=== PATIENT | male | born 1985 | race Caucasian/White ===

== ENCOUNTER 2016-07-07 04:30 | Emergency (ER) ==
[2016-07-07] MEDS ORDERED: ZOFRAN IV ONE (04:41)
[2016-07-07] MEDS ORDERED: DILAUDID IV ONE (04:41)
[2016-07-07 04:55] LABS: BASO% 0.1 % (0.0-0.8); HEMATOCRIT 46.4 % (42.0-52.0); HEMOGLOBIN 16.8 g/dL (14.0-18.0); IMM GRAN# 0.03 X1000 (0.0-0.04); IMM GRAN% 0.2 % (0.0-0.5); LYMPH# 0.88 X1000 (1.2-3.4); LYMPH% 6.8 % (20.5-51.1); MANUAL DIFF NEEDED? NO; MCH 34.5 PG (27-31); MCHC 36.2 g/dL (33-37); MCV 95.3 FL (81-99); MONO# 0.47 X1000 (0.11-0.59); MONO% 3.6 % (1.7-9.3); MPV 10.9 FL (7.4-10.4); NEUT% 89.3 % (42.2-75.2); PLT 260 X1000 (130-400); RBC 4.87 XMIL (4.7-6.1)
[2016-07-07 05:19] LABS: AGAP 13; ALBUMIN 4.7 g/dL (3.5-5.0); ALKALINE PHOSPHATASE 85 U/L (32-122); BUN 12 mg/dL (8-22); CALCIUM 10.3 mg/dL (8.8-10.2); CHLORIDE 99 mmol/L (98-107); COSMO 285; GOT 20 U/L (10-34); GPT 38 U/L (10-44); POTASSIUM 4.4 mmol/L (3.5-5.1); SODIUM 142 mmol/L (136-145); TCO2 30 mmol/L (25-35); TOTAL BILIRUBIN 0.38 mg/dL (0.20-1.00); TOTAL PROTEIN 7.7 g/dL (6.3-8.3)
[2016-07-07] MEDS ORDERED: TORADOL IV ONE (05:48)
[2016-07-07] MEDS ORDERED: FLOMAX PO ONE (05:49)
[2016-07-07] MEDS ORDERED: NS 1,000 ML IV ONE (05:50)
--- NOTE | 2016-07-07 06:05 | PROVIDER DOCUMENTATION ---
HPI-Male Problem - General Chief Complaint: Flank Pain Stated Complaint: BACK PAIN/FEELS LIKE KIDNEY STONE Time Seen by Provider: 07/07/16 04:40 Source: patient Allergies/Adverse Reactions: Patient Allergies Allergy/AdvReac Type Severity Reaction Status Date / Time No Known Allergies Allergy Verified 07/07/16 04:34 Home Medications: Home Medication List Medication Instructions Recorded Confirmed Last Taken Type Oxycodone HCl/Acetaminophen 1 each PO Q4-8H PRN PRN #14 tablet 07/07/16 Unknown Rx [Percocet 7.5-325 mg Tablet] - History of Present Illness-Male Nature of Presenting Problem: Pt has history of kidney stones . He awoke around 1 am with mainly testicular pain followed by left flank pain idenical to previous episodes of pain nephrolithiasis. He denies vomiting. Location of Complaint: reports: left flank, groin Radiation: reports: urethral Quality of Pain: reports: sharp Severity in ED: reports: moderate Onset/Duration: reports: just prior to arrival Context/Activities at Onset: reports: sleep Urinary Symptoms: reports: no symptoms Associated Symptoms: reports: none Similar Symptoms Previously?: Yes Recently seen or treated by another doctor?: No Review of Systems - Adult - REVIEW OF SYSTEMS - ADULT Constitutional: reports: no symptoms reported Eyes: reports: no symptoms reported Ears, Nose, Mouth & Throat: reports: no symptoms reported Cardiovascular: reports: no symptoms reported Respiratory: reports: no symptoms reported Gastrointestinal: reports: no symptoms reported Genitourinary: reports: no symptoms reported Musculoskeletal: reports: no symptoms reported Integumentary: reports: no symptoms reported Neurological: reports: no symptoms reported Psychiatric: reports: no symptoms reported Endocrine: reports: no symptoms reported Hematologic/Lymphatic: reports: no symptoms reported Allergic/Immunologic: reports: no symptoms reported All Other Systems: Reviewed and Negative Past History - Adult - PAST MEDICAL HISTORY-ADULT Review of Records: reports: Old Records Reviewed, Nursing Assessment Review Major Childhood Illnesses: reports: denies history Physical Exam-General - PHYSICAL EXAM-ADULT Initial Vital Signs Reviewed: Yes - CONSTITUTIONAL General Appearance: appears well, mild distress - EYES Eyes: PERRL/EOMI - HEAD, EARS, NOSE, MOUTH & THROAT HENMT: normocephalic/atraumatic, moist mucous membranes, normal ENT inspection - NECK Neck: non-tender, full range of motion - RESPIRATORY Respiratory: chest non-tender, lungs clear - CARDIOVASCULAR Cardiovascular: normal peripheral pulses, regular rate, rhythm - GASTROINTESTINAL (ABDOMEN) Abdominal Exam: normal bowel sounds, non tender - GENITOURINARY Rectal Exam: deferred - MUSCULOSKELETAL Back Exam: CVA tenderness Progress - PLAN OF CARE/RESULTS Progress/Plan/Lab Results: Laboratory Tests 07/07/16 07/07/16 04:41 04:41 WBC 12.97 H RBC 4.87 Hgb 16.8 Hct 46.4 MCV 95.3 MCH 34.5 H MCHC 36.2 RDW Std Deviation 11.6 Plt Count 260 MPV 10.9 H Immature Gran % (Auto) 0.2 Neut % (Auto) 89.3 H Lymph % (Auto) 6.8 L Payette % (Auto) 3.6 Eos % (Auto) 0.0 Baso % (Auto) 0.1 Immature Gran # (Auto) 0.03 Neut # (Auto) 11.58 H Lymph # (Auto) 0.88 L Payette # (Auto) 0.47 Eos # (Auto) 0.00 Baso # (Auto) 0.01 Sodium 142 Potassium 4.4 Chloride 99 Carbon Dioxide 30 Anion Gap 13 BUN 12 Creatinine 1.0 Estimated GFR/1.73 m2 > 60 BUN/Creatinine Ratio 12 Glucose 144 H Calculated Osmolality 285 Calcium 10.3 H Total Bilirubin 0.38 AST 20 ALT 38 Alkaline Phosphatase 85 Total Protein 7.7 Albumin 4.7 Globulin 3.0 Albumin/Globulin Ratio 1.6 Orders Category Date Time Status RENAL STONE SEARCH [CT] Stat Exams 07/07/16 04:42 Taken CBC WITH ELECTRONIC DIFF [HEME] Stat Lab 07/07/16 04:41 Completed COMPREHENSIVE METABOLIC PANEL [CHEM] Stat Lab 07/07/16 04:41 Completed UA NIMS W/REFLEX CULT [URINALYSIS] Stat Lab 07/07/16 05:58 Ordered 0.9% Sodium Chloride Inj [Ns] 1,000 ml Med 07/07/16 05:50 Active IV 999 mls/hr Hydromorphone [Dilaudid] Med 07/07/16 04:41 Discontinued 1 mg IV NOW ONE Ketorolac [Toradol] Med 07/07/16 05:48 Discontinued 30 mg IV NOW ONE Ondansetron [Zofran] Med 07/07/16 04:41 Discontinued 4 mg IV NOW ONE Tamsulosin [Flomax] Med 07/07/16 05:49 Discontinued 0.4 mg PO NOW ONE Vital Signs Temp Pulse Resp BP Pulse Ox 07/07/16 04:32 97.9 F 85 16 157/93 100 No Known Allergies Allergy (Verified 07/07/16 04:34) No Home Medications 07/07/16 I&O 07/05/16 07/06/16 07/07/16 06:59 06:59 06:59 Output Total 100 Balance -100 Laboratory 07/07/16 07/07/16 04:41 04:41 WBC 12.97 H RBC 4.87 Hgb 16.8 Hct 46.4 MCV 95.3 MCH 34.5 H MCHC 36.2 RDW Std Deviation 11.6 Plt Count 260 MPV 10.9 H Immature Gran % (Auto) 0.2 Neut % (Auto) 89.3 H Lymph % (Auto) 6.8 L Payette % (Auto) 3.6 Eos % (Auto) 0.0 Baso % (Auto) 0.1 Immature Gran # (Auto) 0.03 Neut # (Auto) 11.58 H Lymph # (Auto) 0.88 L Payette # (Auto) 0.47 Eos # (Auto) 0.00 Baso # (Auto) 0.01 Sodium 142 Potassium 4.4 Chloride 99 Carbon Dioxide 30 Anion Gap 13 BUN 12 Creatinine 1.0 Estimated GFR/1.73 m2 > 60 BUN/Creatinine Ratio 12 Glucose 144 H Calculated Osmolality 285 Calcium 10.3 H Total Bilirubin 0.38 AST 20 ALT 38 Alkaline Phosphatase 85 Total Protein 7.7 Albumin 4.7 Globulin 3.0 Albumin/Globulin Ratio 1.6 Laboratory Tests 07/07/16 07/07/16 07/07/16 04:41 04:41 04:45 WBC 12.97 H RBC 4.87 Hgb 16.8 Hct 46.4 MCV 95.3 MCH 34.5 H MCHC 36.2 RDW Std Deviation 11.6 Plt Count 260 MPV 10.9 H Immature Gran % (Auto) 0.2 Neut % (Auto) 89.3 H Lymph % (Auto) 6.8 L Payette % (Auto) 3.6 Eos % (Auto) 0.0 Baso % (Auto) 0.1 Immature Gran # (Auto) 0.03 Neut # (Auto) 11.58 H Lymph # (Auto) 0.88 L Payette # (Auto) 0.47 Eos # (Auto) 0.00 Baso # (Auto) 0.01 Sodium 142 Potassium 4.4 Chloride 99 Carbon Dioxide 30 Anion Gap 13 BUN 12 Creatinine 1.0 Estimated GFR/1.73 m2 > 60 BUN/Creatinine Ratio 12 Glucose 144 H Calculated Osmolality 285 Calcium 10.3 H Total Bilirubin 0.38 AST 20 ALT 38 Alkaline Phosphatase 85 Total Protein 7.7 Albumin 4.7 Globulin 3.0 Albumin/Globulin Ratio 1.6 Urine Source CLEAN CATCH Urine Color YELLOW Urine Turbidity CLEAR Urine pH 6.5 Ur Specific Lewellen 1.025 Urine Protein TRACE A Ur Glucose (Stick) 70 A Ur Ketones (Stick) NEGATIVE Urine Blood SMALL A Urine Nitrite NEGATIVE Urine Bilirubin NEGATIVE Urobilinogen Dipstick NORMAL Urine Leukocytes NEGATIVE Urine WBC (Auto) <10 Urine RBC (Auto) <10 U Epithel Cells (Auto) <10 Urine Bacteria (Auto) NEGATIVE - CT/MRI 1 CT Study: Renal Stone (5 mm stone in each kidney but one in ureter) Departure - Departure Time of Disposition Order: 06:30 DIAGNOSIS: Nephrolithiasis Disposition: HOME 01 Certified Medical Emergency: Emergent Condition: Good Additional Instructions: Follow up with urology Prescriptions: Oxycodone HCl/Acetaminophen [Percocet 7.5-325 mg Tablet] 1 each PO Q4-8H PRN PRN #14 tablet PRN Reason: Pain
[2016-07-07 06:10] LABS: URINE CULTURE NEEDED? NO; URINE MICRO REVIEW NEEDED? NO; URINE SOURCE CLEAN CATCH
[2016-07-07 06:16] LABS: BILIRUBIN URINE NEGATIVE (NEGATIVE); BLOOD URINE SMALL (NEGATIVE); COLOR YELLOW; GLUCOSE URINE 70 mg/dL (NEGATIVE); LEUKOCYTES URINE NEGATIVE (NEGATIVE); NITRITE URINE NEGATIVE (NEGATIVE); PH URINE 6.5; PROTEIN URINE TRACE mg/dL (NEGATIVE); SP GRAVITY URINE 1.025; TURBIDITY URINE CLEAR (CLEAR); UROBILINOGEN URINE NORMAL (NORMAL)
[2016-07-07 06:18] LABS: UR EPITHELIAL CELLS <10 /HPF (<10); URINE BACTERIA NEGATIVE /HPF; URINE RBC <10 /HPF (<10); URINE WBC <10 /HPF (<10)
--- NOTE | 2016-07-07 06:19 | Diag Imaging Result Document ---
PROCEDURE NAME: RENAL STONE SEARCH - 07/07/2016 CT ABDOMEN AND PELVIS WITHOUT ORAL OR INTRAVENOUS CONTRAST: FINDINGS: Normal spleen and adrenal glands. No inflammation about the pancreas or gallbladder. No focal hepatic abnormality identified on this noncontrasted exam although the liver is prominent The upper liver is not included on this renal stone search. There are bilateral nonobstructing renal stones. No perinephric inflammation. No hydronephrosis. No ureteral stones. Normal aorta. No bowel obstruction. There is stool throughout the colon. Normal appendix. No abscess. The urinary bladder is moderately distended and appears normal. IMPRESSION: 1. Bilateral nonobstructing renal stones. No hydronephrosis. 2. Constipation. 3. Prominent liver. A preliminary report was given at 5:20 a.m.
[2016-07-07 06:41] VITALS: BP 156/90
== END 2016-07-07 06:41 | disposition home or self-care (01) ==
LOC: ED 04:30
DX: N20.0 Calculus of kidney (principal); K59.00 Constipation, unspecified; R10.9 Unspecified abdominal pain; M54.9 Dorsalgia, unspecified; N50.819 Testicular pain, unspecified; Z87.442 Personal history of urinary calculi
CPT/HCPCS: 74176; 80053; 81001; 85025; J1170; J1885; J2405; J7030

== ENCOUNTER 2018-08-04 01:10 | Inpatient (IN) ==
[2018-08-04] MEDS ORDERED: ZOSYN 3.375 GM in NS 50 ML IV ONE (01:34)
[2018-08-04] MEDS ORDERED: VANCOMYCIN 1 GM/NS 1 GM/250 ML IVPB IV ONE ×2 (01:34→11:00)
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
[2018-08-04 03:54] LABS: BASO# 0.02 X1000 (0.0-0.2); BASO% 0.2 % (0.0-0.8); EOS# 0.07 X1000 (0.0-0.7); EOS% 0.6 % (0.0-10.0); HEMATOCRIT 37.3 % (42.0-52.0); HEMOGLOBIN 12.9 g/dL (14.0-18.0); IMM GRAN# 0.04 X1000 (0.0-0.04); IMM GRAN% 0.3 % (0.0-0.5); LYMPH# 2.37 X1000 (1.2-3.4); LYMPH% 18.6 % (20.5-51.1); MCH 32.7 PG (27-31); MCHC 34.6 g/dL (33-37); MCV 94.4 FL (81-99); MONO% 12.6 % (1.7-9.3); MPV 11.5 FL (7.4-10.4); NEUT# 8.61 X1000 (1.4-6.5); NEUT% 67.7 % (42.2-75.2); PLT 197 X1000 (130-400); RBC 3.95 XMIL (4.7-6.1); RDW 11.4 % (11.5-14.5); WBC 12.71 X1000 (4.8-10.8)
[2018-08-04 04:06] LABS: AGAP 12; ALB/GLOB RATIO 1.2; ALBUMIN 3.7 g/dL (3.5-5.0); ALKALINE PHOSPHATASE 84 U/L (32-122); BUN 10 mg/dL (8-22); CALCIUM 8.8 mg/dL (8.8-10.2); CHLORIDE 100 mmol/L (98-107); COSMO 280; CREATININE 1.1 mg/dL (0.7-1.2); ESTIMATED GFR > 60; GLUCOSE 130 mg/dL (70-104); GOT 18 U/L (10-34); GPT 26 U/L (10-44); POTASSIUM 3.5 mmol/L (3.5-5.1); SODIUM 140 mmol/L (136-145); TCO2 28 mmol/L (25-35); TOTAL BILIRUBIN 0.31 mg/dL (0.20-1.00); TOTAL PROTEIN 6.9 g/dL (6.3-8.3)
--- NOTE | 2018-08-04 07:57 | Diag Imaging Result Doc PS360 ---
EXAM: ELBOW COMPLETE LEFT 08/04/2018 HISTORY: infection TECHNIQUE: Left elbow three views COMMENT: There is soft tissue swelling on both sides of the elbow in the subcutaneous fat. There is no evidence of fracture, dislocation, periosteal reaction or erosion. IMPRESSION: Soft tissue swelling. Electronically signed by Joesph Valdez 08/04/2018 7:54 AM
[2018-08-04] MEDS ORDERED: ZOFRAN IV PRN (09:29)
[2018-08-04] MEDS ORDERED: LOVENOX SUBQ SCH (09:30)
[2018-08-04] MEDS ORDERED: M.V.I.-12 10 ML, FOLIC ACID 1 MG, MAGNESIUM SULFATE 1 GM, THIAMINE 100 MG in NS 1,000 ML IV ONE ×2 (09:37→10:15)
[2018-08-04] MEDS ORDERED: VANCOMYCIN IV PER PHARMACY MISC SCH (09:45)
[2018-08-04] MEDS ORDERED: TYLENOL PO PRN (10:03)
[2018-08-04] MEDS ORDERED: ZOSYN 3.375 GM in NS 50 ML IV SCH (10:15)
[2018-08-04 11:14] LABS: URINE SOURCE CLEAN CATCH
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
[2018-08-04 11:17] LABS: BILIRUBIN URINE NEGATIVE (NEGATIVE); BLOOD URINE SMALL (NEGATIVE); COLOR YELLOW; GLUCOSE URINE NEGATIVE (NEGATIVE); KETONE URINE NEGATIVE (NEGATIVE); LEUKOCYTES URINE NEGATIVE (NEGATIVE); NITRITE URINE NEGATIVE (NEGATIVE); PH URINE 6.5; PROTEIN URINE TRACE mg/dL (NEGATIVE); SP GRAVITY URINE 1.027; TURBIDITY URINE CLEAR (CLEAR); UROBILINOGEN URINE 2 mg/dL (NORMAL)
[2018-08-04 11:18] LABS: UR EPITHELIAL CELLS <10 /HPF (<10); URINE BACTERIA NEGATIVE /HPF; URINE WBC <10 /HPF (<10)
[2018-08-04] MEDS: MORPHINE IV PRN ×2 (11:22→20:19)
[2018-08-04 11:30] LABS: URINE CASTS NONE SEEN; URINE CRYSTALS CA OXALATE PRESENT; URINE SMALL ROUND CELLS NONE SEEN; URINE YEAST NONE SEEN
[2018-08-04] MEDS: NS 1,000 ML IV SCH (11:32)
[2018-08-04 11:56] LABS: UR AMPHETAMINES QUAL PRESUMPTIVE POSITIVE (NONE DETECT); UR BARBITUATES QUAL NONE DETECTED (NONE DETECT); UR BENZODIAZEPIN QUAL NONE DETECTED (NONE DETECT); UR CANNABINOIDS QUAL NONE DETECTED (NONE DETECT); UR COCAINE QUAL NONE DETECTED (NONE DETECT); UR METHADONE QUAL NONE DETECTED (NONE DETECT); UR OPIATES QUAL PRESUMPTIVE POSITIVE (NONE DETECT); UR OXYCODONE QUAL NONE DETECTED (NONE DETECT); UR PCP QUAL NONE DETECTED (NONE DETECT)
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
--- NOTE | 2018-08-04 13:29 | Diag Imaging Result Doc PS360 ---
EXAM: CHEST-1 VIEW 08/04/2018 HISTORY: drug addict with dyspnea TECHNIQUE: AP portable at 1313 COMMENT: There is no evidence of acute cardiac or pulmonary disease. There are no previous studies. IMPRESSION: No acute disease. Electronically signed by Joesph Valdez 08/04/2018 1:27 PM
--- NOTE | 2018-08-04 14:34 | HISTORY AND PHYSICAL ---
ADDENDUM: Nurse and I were in the room with the patient. The patient's mother presented to the hospital, who was at the bedside with the patient and began asking questions about events leading up to his emergency room arrival. The patient kept telling the mother "I don't know what happened, so I did not give any further details." When I left the room, the mother followed me out of the room and was asking about any IV drug use. I informed the mother that he was an adult, and that he did want anything told to anyone. Therefore, I would not discuss any further details, to which the mother was not happy, but she understood. The patient's nurse, Ana Laura, and I then went in the room and closed the door and asked the patient. He stated he did not want us to give any details to anyone about any events leading up to his ER visit; that he was okay with us talking about his ER care, and I did inform the patient that we would talk to the mother in the room with him, to which he was very agreeable. Dictated by KANWAL Santoyo for Richard Thompson MD This chart was documented by, KANWAL Santoyo and accurately reflects the services performed, treatment plan and medical decisions as attested by the providers signature Richard Thompson MD. cc: KANWAL Santoyo MD
[2018-08-04] MEDS ORDERED: DIPRIVAN 1% ONE ×2 (17:40→17:57)
[2018-08-04] MEDS ORDERED: XYLOCAINE-MPF 2% ONE (17:41)
[2018-08-04] MEDS ORDERED: QUELICIN (DOSE) ONE (17:42)
[2018-08-04] MEDS ORDERED: NORCURON ONE (17:43)
[2018-08-04] MEDS ORDERED: SODIUM CHLORIDE 0.9% 0 ML ONE (17:43)
--- NOTE | 2018-08-04 17:52 | Diag Imaging Result Doc PS360 ---
MRI UPPER EXT W/WO CON-LEFT - 08/04/2018 INDICATION: ? compartment syndrome, abcess TECHNIQUE: MRI left elbow without and with intravenous contrast COMPARISON: None FINDINGS: There is significant surrounding subcutaneous edema. At the volar surface of the elbow, there is an extremely superficial irregularly enhancing subcutaneous fluid collection consistent with an abscess. This extends all the way to the skin surface. This measures 6.9 x 3.8 x 3.3 cm. This overlies the distal biceps tendon. No deeper compartment abnormality. IMPRESSION: Superficial subcutaneous abscess at the volar surface of the elbow. Electronically signed by Jason Darling 08/04/2018 5:50 PM
[2018-08-04] MEDS ORDERED: DILAUDID ONE (19:08)
[2018-08-04] MEDS ORDERED: LR 500 ML ONE (19:33)
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
[2018-08-04] MEDS: OXY IR PO PRN ×2 (21:45→21:49)
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
[2018-08-04 23:32] LABS: HIV ANTIBODY SCREEN SEE COMMENTS
[2018-08-05] MEDS: NS 1,000 ML IV SCH (00:30)
[2018-08-05] MEDS: VANCOMYCIN 1,500 MG in NS 250 ML IV SCH ×2 (04:33→23:00)
[2018-08-05] MEDS: MORPHINE IV PRN ×5 (04:33→23:03)
[2018-08-05] MEDS: PRILOSEC PO SCH (06:13)
[2018-08-05 07:49] LABS: HEMATOCRIT 42.1 % (42.0-52.0); HEMOGLOBIN 14.5 g/dL (14.0-18.0); MCH 33.1 PG (27-31); MCHC 34.4 g/dL (33-37); MCV 96.1 FL (81-99); MPV 11.4 FL (7.4-10.4); RBC 4.38 XMIL (4.7-6.1); RDW 11.7 % (11.5-14.5); WBC 14.59 X1000 (4.8-10.8)
--- NOTE | 2018-08-05 08:04 | PROGRESS NOTE ---
DATE: 08/05/2018 SUBJECTIVE: Mr. Rojas is lying in bed this morning. He has complained of pain in the arm. OBJECTIVE: Left upper extremity exam: His dressing is clean, dry, and intact. All his hand intrinsics are intact. He has good sensation to light touch to the fingers, and he has good 2+ radial pulse. ASSESSMENT: Status post left antecubital fossa and arm irrigation, debridement for abscess. PLAN: I discussed with Mr. Rojas about the iodoform packing in there; we will probably take that out tomorrow sometime and do a dressing change. I did discuss with him it is going to take awhile to get over this and to heal his arm. I am okay with him moving his arm a little bit and moving all his fingers. We will continue to follow. cc: Meliton Mckeon MD
[2018-08-05 09:59] LABS: AGAP 16; ALBUMIN 3.5 g/dL (3.5-5.0); ALKALINE PHOSPHATASE 84 U/L (32-122); BUN 5 mg/dL (8-22); CHLORIDE 99 mmol/L (98-107); COSMO 273; CREATININE 0.7 mg/dL (0.7-1.2); ESTIMATED GFR > 60; GLUCOSE 103 mg/dL (70-104); GOT 18 U/L (10-34); GPT 26 U/L (10-44); POTASSIUM 3.5 mmol/L (3.5-5.1); SODIUM 138 mmol/L (136-145); TCO2 23 mmol/L (25-35); TOTAL BILIRUBIN 0.39 mg/dL (0.20-1.00)
[2018-08-05 13:04] LABS: HEPATITIS PROFILE ACUTE SEE COMMENTS
--- NOTE | 2018-08-05 13:38 | PROGRESS NOTE ---
DATE: 08/05/2018 SUBJECTIVE: The patient complains of pain in his left arm. OBJECTIVE: Vital Signs: Temperature 97.9 degrees, blood pressure 135/82, heart rate 76, respirations 18, and O2 saturation 99% on room air. General: This is a young male lying in bed in no acute distress. Heart: S1, S2 normal. Regular rate and rhythm. Lungs: Clear to auscultation bilaterally. Abdomen: Positive bowel sounds. Soft, nontender, and nondistended. Extremities: Left arm is wrapped in a clean dry dressing. Neurologic: The patient is alert and oriented x3. LABORATORY: White blood cell count 14, hemoglobin 14, hematocrit 42, and platelets 228,000. Sodium 138, potassium 3.5, chloride 99, CO2 23, BUN 5, creatinine 0.7 and glucose 103. ASSESSMENT AND PLAN: 1. Status post irrigation and debridement of a left arm abscess. Continue with IV antibiotic therapy as directed by Dr. Chatman. The wound cultures are currently pending. Further management as per the orthopedic surgeon. 2. IV drug abuse. Aware. 3. Deep vein thrombosis prophylaxis. Continue with SCD's. cc: Rhonda Michelle MD
--- NOTE | 2018-08-05 16:55 | INFECTIOUS DISEASE PROGRESS NO ---
DATE: 08/05/2018 PRESENT ILLNESS: Mr. Rojas is being treated for cellulitis and abscess of the left elbow. He is status post irrigation and debridement of that abscess. There is also a gram-positive coccus growing in 1 one out of 2 of his blood cultures. This may possibly be a contaminant or it may be bacteremia. MEDICATIONS: Today is day 1 of vancomycin IV per pharmacy dosing. PHYSICAL EXAM: Vital Signs: Temperature is 97.4 degrees, pulse rate 78, respiratory rate 18, blood pressure 114/92, O2 saturation 100% on room air. General: This is a acutely ill appearing young man. He is lying in bed lethargic but arousable in no acute distress. HEENT: Atraumatic, normocephalic. Oral mucous membranes are pink and moist. Conjunctivae are pink. Neck: Supple. Trachea is midline. Cardiovascular: Heart rate is regular. Respiratory: Lung sounds are clear to auscultation. Abdomen: Soft, flat and nontender. Bowel sounds are active. Integumentary: His left upper arm has a bulky Chandan wrap with some swelling noted above the Chandan wrap area. He has a good radial pulse in that arm. Neurologic: He is drowsy and lethargic but arousable and appropriate, able to move all his extremities in the bed without difficulty. LABORATORY AND X-RAY: No imaging report today, but yesterday his chest x-ray showed no acute disease. ASSESSMENT AND PLAN: Mr. Rojas has had irrigation and drainage of an abscess with cellulitis of the left upper extremity. He is receiving vancomycin which we will continue. There is a possibility of a bacteremia versus contaminant, with gram-positive cocci growing in 1 out of 2 of the blood cultures. His left upper extremity cultures are pending with preliminary report of no growth. For now we will continue vancomycin as ordered and await final cultures. These plans have been discussed with and recommended by Dr. Chatman. COMORBIDITIES: Include tobacco, alcohol and drug abuse. Dictated by KANWAL Lim for Jordan Chatman MD This chart was documented by, KANWAL Lim and accurately reflects the services performed, treatment plan and medical decisions as attested by the providers signature Jordan Chatman MD. cc: Jordan Chatman MD [facility]PITALDevan
[2018-08-06] MEDS: MORPHINE IV PRN ×5 (02:58→20:56)
[2018-08-06] MEDS: PRILOSEC PO SCH (06:05)
[2018-08-06 07:42] LABS: HEMATOCRIT 42.2 % (42.0-52.0); HEMOGLOBIN 14.5 g/dL (14.0-18.0); MCH 33.2 PG (27-31); MCHC 34.4 g/dL (33-37); MCV 96.6 FL (81-99); MPV 10.9 FL (7.4-10.4); RBC 4.37 XMIL (4.7-6.1); RDW 11.8 % (11.5-14.5); WBC 12.15 X1000 (4.8-10.8)
[2018-08-06 08:21] LABS: AGAP 10; BUN 10 mg/dL (8-22); CHLORIDE 102 mmol/L (98-107); COSMO 279; CREATININE 0.7 mg/dL (0.7-1.2); ESTIMATED GFR > 60; GLUCOSE 111 mg/dL (70-104); SODIUM 140 mmol/L (136-145); TCO2 28 mmol/L (25-35)
[2018-08-06] MEDS: OXY IR PO PRN ×2 (09:10→17:59)
--- NOTE | 2018-08-06 09:39 | PROGRESS NOTE ---
DATE: 08/06/2018 SUBJECTIVE: Mr. Rojas is sitting up in bedside chair. He is feeling better overall. Arm is feeling a little bit better. OBJECTIVE: Left upper extremity: I took his dressing down. I took all the iodoform packing out of the wound. I packed some new iodoform packing in the wound to keep it open and then redressed it with a dry dressing. The patient tolerated the procedure well. ASSESSMENT: Status post left arm irrigation and debridement of abscess. PLAN: We will keep Mr. Rojas here over the weekend, make sure everything is healing well for him. Would do another dressing change on 08/08/2018. cc: Meliton Mckeon MD
[2018-08-06] MEDS: VANCOMYCIN 1,500 MG in NS 250 ML IV SCH (17:59)
--- NOTE | 2018-08-06 21:01 | PROGRESS NOTE ---
DATE: 08/06/2018 SUBJECTIVE: The patient is resting comfortably in bed. He complains of pain in his left arm. No acute events noted overnight. OBJECTIVE: Vital Signs: Temperature 97.4, blood pressure 146/67, heart rate 104, respirations 17, O2 saturations 100% on room air. General: This is a young male lying in bed in no acute distress. Heart: S1, S2. Normal. Tachycardic. Lungs: Clear to auscultation bilaterally. No wheezing. No rales. No rhonchi. Abdomen: Positive bowel sounds. Soft, nontender, nondistended. Extremities: The left arm is wrapped in a clean, dry dressing. LABS: White blood cell count 12, hemoglobin 14, hematocrit 42, platelets 251. ASSESSMENT AND PLAN: 1. Status post irrigation and debridement of left arm abscess. Continue with wound care and antibiotic therapy. 2. IV drug abuse. Aware. 3. Deep vein thrombosis prophylaxis. Continue with sequential compression devices. cc: Rhonda Michelle MD MTDD
[2018-08-07] MEDS: MORPHINE IV PRN (04:52)
[2018-08-07] MEDS: PRILOSEC PO SCH (06:28)
[2018-08-07] MEDS: OXY IR PO PRN (06:33)
[2018-08-07 07:18] LABS: HEMATOCRIT 42.9 % (42.0-52.0); HEMOGLOBIN 14.3 g/dL (14.0-18.0); MCH 32.8 PG (27-31); MCHC 33.3 g/dL (33-37); MCV 98.4 FL (81-99); RBC 4.36 XMIL (4.7-6.1); WBC 10.94 X1000 (4.8-10.8)
[2018-08-07 07:48] LABS: AGAP 11; BUN 10 mg/dL (8-22); CALCIUM 8.8 mg/dL (8.8-10.2); CHLORIDE 106 mmol/L (98-107); COSMO 285; CREATININE 0.8 mg/dL (0.7-1.2); ESTIMATED GFR > 60; GLUCOSE 110 mg/dL (70-104); POTASSIUM 3.8 mmol/L (3.5-5.1); SODIUM 143 mmol/L (136-145); TCO2 26 mmol/L (25-35)
[2018-08-07] MEDS: PERCOCET-10 PO PRN ×3 (10:28→20:45)
[2018-08-07] MEDS: LOVENOX SUBQ SCH (10:29)
[2018-08-07] MEDS: VANCOMYCIN 1,500 MG in NS 250 ML IV SCH (13:22)
--- NOTE | 2018-08-07 13:53 | PROGRESS NOTE ---
DATE: 08/07/2018 SUBJECTIVE: The patient is resting comfortably in bed. He has no complaints at this time. OBJECTIVE: Vital Signs: Temperature 97.9 degrees, blood pressure 114/63, heart rate 75, respirations 20, O2 saturation is 97% on room air. General: This is a young male lying in bed, in no acute distress. Heart: S1, S2 normal. Regular rate and rhythm. Lungs: Equal air entry bilaterally. No crackles. No rales. Abdomen: Positive bowel sounds. Soft, nontender, nondistended. Extremities: The left arm is wrapped in a clean, dry dressing. Neurologic: The patient is alert and oriented x4. Labs: White blood cell count 10, hemoglobin 14, hematocrit 42, platelets 272,000. BUN 10, creatinine 0.8, sodium 143, potassium 3.8. ASSESSMENT AND PLAN: 1. Status post irrigation and debridement of a left arm abscess. Continue with antibiotic therapy and wound care. 2. Intravenous drug abuse. Aware. 3. Deep vein thrombosis prophylaxis. Continue with sequential compression devices. cc: Rhonda Michelle MD MTDD
[2018-08-08] MEDS: PERCOCET-10 PO PRN ×2 (05:19→09:10)
[2018-08-08] MEDS: PRILOSEC PO SCH ×2 (05:19→06:06)
[2018-08-08 07:22] LABS: BASO# 0.05 X1000 (0.0-0.2); BASO% 0.5 % (0.0-0.8); EOS# 0.26 X1000 (0.0-0.7); EOS% 2.4 % (0.0-10.0); HEMATOCRIT 42.5 % (42.0-52.0); HEMOGLOBIN 14.4 g/dL (14.0-18.0); IMM GRAN# 0.07 X1000 (0.0-0.04); IMM GRAN% 0.7 % (0.0-0.5); LYMPH# 2.64 X1000 (1.2-3.4); LYMPH% 24.6 % (20.5-51.1); MCH 32.7 PG (27-31); MCHC 33.9 g/dL (33-37); MCV 96.6 FL (81-99); MONO# 0.88 X1000 (0.11-0.59); MONO% 8.2 % (1.7-9.3); MPV 10.5 FL (7.4-10.4); NEUT# 6.85 X1000 (1.4-6.5); NEUT% 63.6 % (42.2-75.2); PLT 296 X1000 (130-400); RDW 11.6 % (11.5-14.5); WBC 10.75 X1000 (4.8-10.8)
[2018-08-08 07:48] VITALS: BP 133/72
[2018-08-08 08:06] LABS: AGAP 10; BUN 15 mg/dL (8-22); CALCIUM 8.9 mg/dL (8.8-10.2); CHLORIDE 101 mmol/L (98-107); COSMO 280; ESTIMATED GFR > 60; GLUCOSE 94 mg/dL (70-104); POTASSIUM 4.4 mmol/L (3.5-5.1); SODIUM 140 mmol/L (136-145); TCO2 29 mmol/L (25-35)
[2018-08-08] MEDS ORDERED: VANCOMYCIN 1,600 MG in NS 250 ML IV SCH (09:00)
[2018-08-08] MEDS: LOVENOX SUBQ SCH (09:08)
--- NOTE | 2018-08-08 09:40 | PROGRESS NOTE ---
DATE: 08/08/2018 SUBJECTIVE: Mr. Rojas is lying in bed this morning. He is a little bit anxious about trying to be discharged. He is feeling a lot better. Arm is feeling better. OBJECTIVE: Left upper extremity exam, dressing was taken down. The Iodoform packing, did come out. The wound actually looked really good. Really pushed on the arm and around that whole area. I really did not get any purulent drainage out of there at all. He did not have near the tenderness palpation as it was even just 2 days ago. I redressed thing redressed everything. ASSESSMENT: Status post left irrigation debridement arm for abscess. PLAN: I am okay with Mr. Rojas being discharged from orthopedic standpoint. He can follow with me in a week in clinic. We will continue to follow this arm. cc: Meliton Mckeon MD
--- NOTE | 2018-08-08 13:09 | INFECTIOUS DISEASE PROGRESS NO ---
DATE: 08/08/2018 SUBJECTIVE: The patient developed arm cellulitis and abscess due to IV drugs. Culture from the wound grew Staph epidermidis, which most likely is a contaminant. It also grew oxacillin sensitive Staph aureus. The patient has undergone incision and drainage of the arm. The patient is being discharged today. I have recommended Keflex 500 mg p.o. every 8 hours for 2 weeks and have requested the patient have a followup appointment in my office in 2 weeks. cc: Jordan Chatman MD
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
== END 2018-08-08 10:48 | disposition home or self-care (01) | DRG 581 ==
LOC: ED 01:10 → EDIPHOLD 11:17 → 3N 14:05
PROVIDERS: ATTEND Internal Medicine
CPT/HCPCS: 71010; 71045; 73080; 73220; 80048; 80053; 80074; 80101; 80202; 80301; 80307; 80324; 80345; 80346; 80353; 80358; 80361; 80365; 81001; 83605; 83992; 85025; 85027; 86701; 87040; 87070; 87075; 87077; 87186; 87389; 94761; 94799; 96365; 96366; 96367; 99285; A9270; A9579; G0431; G0434; G0479; G0480; J0330; J1170; J1650; J2270; J2543; J3370; J3411; J3475; J7030; J7050; J7120